=== PATIENT | female | born 1995 | race Caucasian/White ===

== ENCOUNTER 2018-05-30 06:06 | Inpatient (IN) | payer MEDICAID ==
[2018-05-30 06:13] VITALS: BP 149/67
[2018-05-30] MEDS ORDERED: FAMOTIDINE(*) 20MG/50ML PREMIX 50 ML IVPB PRN (06:30)
[2018-05-30] MEDS ORDERED: OXYTOCIN 30 UNIT/D5LR 500 ML 500 ML IV PRN ×2 (06:30→08:41)
[2018-05-30] MEDS ORDERED: cefOXitin/DEX(*) 2GM/50ML PREM 50 ML IVPB PRN (06:30)
[2018-05-30] MEDS ORDERED: fentaNYL CITR 100 MCG/2 ML AMP IVP PRN (06:30)
[2018-05-30] MEDS ORDERED: LR(*) 1000 ML BAG 1,000 ML IV SCH (06:30)
[2018-05-30] MEDS ORDERED: METOCLOPRAMIDE 10 MG/2 ML SDV IVP PRN (06:30)
[2018-05-30] MEDS ORDERED: LIDOCAINE 1% LOCAL 300 MG/30ML INJ PRN (06:30)
[2018-05-30] MEDS ORDERED: BUPIVACAINE 0.5% INJ 30ML VIAL EPI PRN (06:45)
[2018-05-30] MEDS ORDERED: BUPIVACAINE 0.25% MPF INJ EPI PRN (06:45)
[2018-05-30] MEDS ORDERED: FENTANYL/ROPIVACAINE 100 ML BAG EPI PRN (06:45)
[2018-05-30] MEDS ORDERED: fentaNYL CITR 100 MCG/2 ML AMP IT PRN (06:45)
[2018-05-30] MEDS ORDERED: LIDO/EPI 2% MPF 1:200,000 20ML EPI PRN (06:45)
[2018-05-30] MEDS ORDERED: LIDOCAINE/PF 2% 200MG/10ML AMP 200 MG/10 ML AMPUL EPI PRN (06:45)
[2018-05-30 07:06] LABS: PLATELET COUNT, AUTOMATED 231 K/uL (150-450)
[2018-05-30] MEDS ORDERED: ePHEDrine 25 MG/5 ML DISP.SYR IVP ONE (07:14)
--- NOTE | 2018-05-30 08:35 | History & Physical ---
History of Present Illness Age of Patient: 22 : 2 Para or TPAL: 0 EDC per LMP: May 26, 2018 Estimated Gestational Age: 40.4 Chief Complaint Labor History of Present Illness Presents in labor and SROM. uncomplicated and recieved her at 36 weeks transferred from another location to [place], [place]. She is Rh negative. Past Medical, Surgical, Family and Obstetric Histories reviewed. Please see ACOG chart. Review of Systems All Systems Reviewed/Normal: Yes, Except as Noted Exam General Exam Vital Signs Vital Signs Date Time Temp Pulse Resp B/P (MAP) Pulse Ox O2 Delivery O2 Flow Rate FiO2 05/30/18 06:13 99.0 93 18 149/67 (94) 98 Room Air General Apperance: Alert/Awake/No Acute Distress Neuro: No Gross deficits Eyes: Normal Extraocular Movement & Vison Cardiovascular: Regular Rate and Rhythm Respiratory: No Respiratory Distress Abdomen: Soft, Non-Tender, Non-Distended, Gravid - Non-Tender Integumentary: Skin Intact without Lesions or Rash Psychological: Alert & Oriented X3, Appropriate Mood & Affect Cervical Dialation: 4 Cervical Effacement (%): 90 Station: -2 Presentation: Vertex Fetus Heart Tone Variabilty: Moderate FHT Accelerations: 15X15 FHT Category: I Medical Decision Making Data Points Result Diagram: 05/30/18 0654 VTE Prophylasis: Adult Deep Vein Thrombosis/Pulmonary: No Pharmacological Contraindicati: Pt at Low Risk for VTE Mechanical Contraindications: Pt at Low Risk for VTE 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
--- NOTE | 2018-05-30 08:44 | Anesthesia OB Pre-Anes Eval ---
History of Present Illness Anesthesia Start Date: May 30, 2018 Anesthesia Start Time: 07:10 OB Anesthesia Diagnosis: spontaneous labor EDC: May 26, 2018 : 2 Para: 0 Pain Ratin Result Diagram: 05/30/18 0654 Past Medical History Medical History: other (HX of kidney infections/UTI's) Surgical History: no surgical history Attended Childbirth Classes?: No Hx Anesthesia Reactions: No Hx Family Anesthesia Reaction: No Home Meds Reported Medications Vit #76/Iron,Carb/FA (Pnv 29-1 Tablet) 1 Each Tablet, 1 TAB PO QDAY 05/30/18 Allergies: Coded Allergies: No Known Drug Allergies (Unverified , 05/30/18) Anesthesia OB ROS Neurological: No migraines/headaches, No seizures, No neuropathy, No other ENT: Denies Tooth caps, Denies Loose teeth, Denies Chipped teeth, Denies Dentures, Denies Bridges, Denies Retainers, Denies Veneers, Denies Implants, Denies Tongue ring, Denies Other Pulmonary: No asthma, No smoker (pks/day/yrs), No other (quit years ago) Airway Class: lll Cardiovascular ROS: No edema, No arrhythmia, No other GI ROS: clear liquids Last Solids Date: May 29, 2018 Last Solids Time: 20:00 ROS: No Herpes, No STD(s), No Liver Disease, No Renal Disease, No Other Endocrine ROS: No diabetes, No gestational diabetes, No thyroid disorder, No other Musculoskeletal ROS: No low back pain, No low back injury, No scoliosis, No other ASA Classification: 2 Assessment and Plan Anesthesia Plan: CSE Anesthesia Stop Day: May 30, 2018 Anesthesia Stop Time: 19:45 Epidural Catheter Removal: Removed Catheter Intact, Yes, Removed by: (Radha JEAN) Removal Date: May 30, 2018 Removal Time: 22:30 RYAN CARNEY CRNA May 30, 2018 08:44
[2018-05-30] MEDS ORDERED: TERBUTALINE SULF 1 MG/ML VIAL IVP PRN (08:45)
--- NOTE | 2018-05-30 08:49 | Procedure Note ---
Anesthetic Placement Note Anesthesia Plan: CSE Permit for Anesthesia Signed: Yes Anesthesia Technique: Patient Sitting Anesthesia Prep: Chlorhexidine Interspace: L 3-4 Local Anesthetic: 1% Lidocaine, 25 Gauge Needle Amount Local - cc's: 3 Anesthesia Needle: 17g Touhy/Schliff Anesthesia Attempts: 2 Loss of Resistance: Normal Saline Depth of JUNIE (cm): 6 Epidural Needle Placement: No CSF, No Blood, No Parasthesia Intrathecal Needle: 27 Gauge Pencan Cerebral Spinal Fluid: Yes, Clear Catheter Insertion (cm): 11 Catheter Type: Puri - Spring Wound Epidural Dressing: Tegaderm, Tape Anesthesia Tray: Lot Number ([id number]), Expiration Date (11/05/2019) Anesthesia Medications: Intrathecal Dose: mcg Fentanyl (50), Time (814) Epidural Test Dose: 1.5 Lido/Epi (1:200,000), Dose - mL (4), Time (08), Negative Epidural Loading Dose: 0.2% Ropivicaine, With Fentanyl 2mcg/ml, Dose - ml (3), Time (08) Epidural Infusion: 0.2% Ropivicaine, With Fentanyl 2mcg/ml, Start Time: (827) Epidural Pump Setting: Bolus Dose - mL (5), Lockout - Minutes (20), Maintenance Rate - mL/hr (8), Maximum per Hour - mL (10) Complications: None Comment: Difficult to place. attempted x2 JUNIE off to the left of center. RYAN CARNEY CRNA May 30, 2018 08:49
[2018-05-30] MEDS ORDERED: CALCIUM CARBONATE 500 MG CHEW PO PRN (13:50)
--- NOTE | 2018-05-30 17:54 | Labor Progress Note ---
Labor Subjective Progress Notes Subjective Complete and pushing. Strong pushes and baby at +2 station in ARTURO position. Deep variables with pushes but return to baseline with good variability and accels. Vaginal Discharge/Fluid: Bloody Show Labor Objective Vital Signs Vital Signs Date Time Temp Pulse Resp B/P (MAP) Pulse Ox O2 Delivery O2 Flow Rate FiO2 05/30/18 06:13 99.0 93 18 149/67 (94) 98 Room Air Fetus Heart Tone Variabilty: Moderate FHT Accelerations: 15X15 FHT Category: I Other Result Diagram: 05/30/18 0654 Assessment and Plan Problems: (1) 40 weeks gestation of Assessment & Plan: If moves into category 2 strip or maternal exhaustion, will consider FAVD. Reviewed this with pt and mother. R/B/A reviewed. For now, continue pushing. RAYSA BAUTISTA MD May 30, 2018 17:54
[2018-05-30] MEDS ORDERED: METHYLERGONOVINE MAL 0.2MG/ML ONE (18:18)
[2018-05-30] MEDS ORDERED: MEASLES,MUMP,RUBELLA VAC 0.5ML SUBQ ONE (19:10)
[2018-05-30] MEDS ORDERED: GLYCERIN/WITCH HAZEL LEAF 1 PK TP PRN (19:10)
[2018-05-30] MEDS ORDERED: LANOLIN OINT 7 GM TUBE TP PRN (19:10)
[2018-05-30] MEDS ORDERED: ACETAMINOPHEN 325 MG TAB PO PRN (19:10)
[2018-05-30] MEDS ORDERED: INFLUENZA VIRUS VAC 0.5ML SYR IM ONLY ONE (19:10)
[2018-05-30] MEDS ORDERED: BENZOCAINE 20% 60 ML BTL TP PRN (19:10)
[2018-05-30] MEDS ORDERED: HYDROCORTISONE 2.5% CR 30GM TB PR PRN (19:10)
[2018-05-30] MEDS ORDERED: MAGNESIUM HYDROXIDE* 30ML UDCP PO PRN (19:10)
[2018-05-30] MEDS ORDERED: DIPHTH/TETANUS/ACEL. PERTUSSIS IM ONLY ONE (19:10)
--- NOTE | 2018-05-30 19:19 | OB Delivery Note ---
Delivery Note Vaginal Delivery Type: Forceps (Closed Simpsons, +2/3, ARTURO position), Low Delivery Date: May 30, 2018 Delivery Time: 18:28 Estimated Gestational Age(wks): 40.4 Indication (if vag op): Maternal exhaustion; Severe variable decelerations Delivery Anesthesia: Epidural Sex: Female Rose Apgars: 1 Minute (8), 5 Minute (8) Repair Needed: Laceration, 3rd Degree Estimated Blood Loss: 400 Delivery Complications: Shoulder Dystocia (mild with suprapubic pressure), Laceration Notes: Presented pushing in ARTURO position and strong pushes. Severe variable decelerations noted but good return to baseline category 1 between with accelerations and variability. Slow increase in babies baseline FHTs to 155 and maternal exhaustion after 1.5 hours pushing with little progress. Consented for Forceps delivery. R/B/A reviewed in detail including risk of injury to baby and increase in perineal trauma. She desired and consent obtained. Hunt indwelling, ARTURO position, +2/3 station. Closed Simpsons easily applied and over next contraction, pushing with assistance. Slow progress to and coaching required. Delivery over 3rd degree laceration with bilateral sulcus tears. Head delivered and turtle sign noted. Bed dropped and suprapubic p ressure applied with maternal push. Assistance by deflecting baby's head toward the rectum and a hand over the anterior shoulder deflecting it inward resulted in release of the shoulder. Nuchal cord x 1 and body cord noted. Terminal meconium noted. Placenta delivered spontaneous and intact. Repair with 2-0 Chromic along the sulcus tears followed by 2-0 Vicryl to repair the anal sphincter. Good hemostasis and reapproximation of all skin edges. Uterus massaged firm. No further complications. Screw Eye Assembler in Attendence: No Copies to: RAYSA BAUTISTA MD ; RAYSA BAUTISTA MD May 30, 2018 19:19
[2018-05-30] MEDS ORDERED: PREN1TAB50 PO (19:54)
[2018-05-30] MEDS ORDERED: LIDOCAINE 1% LOCAL 300 MG/30ML 30 ML ONE (21:30)
[2018-05-30] MEDS: DOCUSATE CALCIUM 240 MG CAP PO SCH (22:07)
[2018-05-30] MEDS: IBUPROFEN 800 MG TAB PO SCH (22:07)
[2018-05-31] VITALS: BP 113/51
[2018-05-31] MEDS: APAP/HYDROCODONE 325/7.5 TAB PO PRN ×5 (00:11→20:45)
[2018-05-31 03:30] VITALS: BP 114/55
[2018-05-31] MEDS: IBUPROFEN 800 MG TAB PO SCH ×3 (05:14→20:45)
[2018-05-31 08:10] VITALS: BP 109/51
--- NOTE | 2018-05-31 12:33 | OB/GYN Progress Note ---
OB Subjective Progress Notes Subjective Doing well. Pain well controlled with Lortab. Hunt removed this AM and has not been up to void yet. GI: NEG Nausea : Voiding Well Pain: Mild OB Objective Physical Exam Vital Signs Date Time Temp Pulse Resp B/P (MAP) Pulse Ox O2 Delivery O2 Flow Rate FiO2 05/31/18 03:30 97.8 84 18 114/55 (74) 05/30/18 06:13 98 Room Air Intake and Output 05/31/18 07:00 Intake Total 2130 ml Output Total 1300 ml Balance 830 ml Intake IV Total 2130 ml Output Urine Total 900 ml Estimated Blood Loss 400 ml General Appearance: Alert/Awake/No Acute Distress Neurological: No Gross deficits Eyes: Normal Extraocular Movement & Vison Cardiovascular: Normal Rhythm & Peripheral Pulses Respiratory: No Respiratory Distress Abdomen: Soft, Non-Tender, Non-Distended, Fundus Firm, Non-Tender Integumentary: Skin Intact without Lesions or Rash Psychological: Alert & Oriented X3, Appropriate Mood & Affect Result Diagram: 05/31/18 0632 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 Continue comfort measures. Return to office in 6 weeks. RAYSA BAUTISTA MD May 31, 2018 12:33
[2018-05-31 19:30] VITALS: BP 114/60
[2018-05-31] MEDS: DOCUSATE CALCIUM 240 MG CAP PO SCH (20:45)
[2018-06-01] MEDS: APAP/HYDROCODONE 325/7.5 TAB PO PRN ×3 (02:28→12:18)
[2018-06-01] MEDS: IBUPROFEN 800 MG TAB PO SCH ×2 (05:07→12:54)
--- NOTE | 2018-06-01 08:24 | OB/GYN Progress Note ---
OB Subjective Progress Notes Subjective Feeling well. Pain in bottom improving. Bleeding light. GI: NEG Nausea : Voiding Well Pain: Mild OB Objective Physical Exam Vital Signs Date Time Temp Pulse Resp B/P (MAP) Pulse Ox O2 Delivery O2 Flow Rate FiO2 05/31/18 19:30 97.8 95 16 114/60 (78) 97 Room Air Intake and Output 06/01/18 07:00 Intake Total 480 ml Output Total 1000 ml Balance -520 ml Intake Oral 480 ml Output Urine Total 1000 ml # Voids 3 General Appearance: Alert/Awake/No Acute Distress Neurological: No Gross deficits Eyes: Normal Extraocular Movement & Vison Cardiovascular: Normal Rhythm & Peripheral Pulses Respiratory: No Respiratory Distress Abdomen: Soft, Non-Tender, Non-Distended, Fundus Firm, Non-Tender Integumentary: Skin Intact without Lesions or Rash Psychological: Alert & Oriented X3, Appropriate Mood & Affect Result Diagram: 05/31/18 0632 Assessment and Plan Problems: (1) 40 weeks gestation of (2) care and examination immediately after delivery Assessment & Plan: Home today. Precautions reviewed. F/U at 6 weeks. RAYSA BAUTISTA MD Jun 01, 2018 08:24
[2018-06-01] MEDS ORDERED: IBUP800T37 PO (08:25)
[2018-06-01] MEDS ORDERED: Acetaminophen/Hydrocodone PO (08:25)
--- NOTE | 2018-06-01 08:27 | OB/GYN Discharge Summary ---
Discharge Summary Reason for Hosp/Final Diag: (1) 40 weeks gestation of Hospital Course & Plan: s/p FAVD with 3rd degree laceration repaired. (2) care and examination immediately after delivery Hospital Course & Plan: Home today. Precautions reviewed. F/U at 6 weeks. 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 Blanco [phone] Follow up in: 6 wks PP or PO Discharge Diet: As Tolerates Discharge Activity: As Tolerates, No Heavy Lifting x 6 wks, No Heavy Lifting > 10lb, Pelvic Rest Copies to: RAYSA BLANCO MD ; RAYSA BLANCO MD Jun 01, 2018 08:27
[2018-06-01 08:30] VITALS: BP 126/73
[2018-06-01] MEDS: DOCUSATE CALCIUM 240 MG CAP PO SCH (10:15)
== END 2018-06-01 15:25 | disposition home or self-care (01) | DRG 768 ==
LOC: OB 06:06 → PED 05-31 19:46
PROVIDERS: ADMIT Obstetrics & Gynecology; ATTEND Obstetrics & Gynecology
PROC: 10E0XZZ Delivery of Products of Conception, External Approach (ICD-10-PCS; principal; 2018-05-30)
PROC: 0DQR0ZZ Repair Anal Sphincter, Open Approach (ICD-10-PCS; 2018-05-30)
PROC: 3E0334Z Introduction of Serum, Toxoid and Vaccine into Peripheral Vein, Percutaneous Approach (ICD-10-PCS; 2018-06-01)
DX: O69.81X0 Labor and delivery complicated by cord around neck, without compression, not applicable or unspecified (principal); Z37.0 Single live birth; O70.20 Third degree perineal laceration during delivery, unspecified; O36.0130 Maternal care for anti-D [Rh] antibodies, third trimester, not applicable or unspecified; O66.0 Obstructed labor due to shoulder dystocia; O77.0 Labor and delivery complicated by meconium in amniotic fluid; O75.81 Maternal exhaustion complicating labor and delivery; O76 Abnormality in fetal heart rate and rhythm complicating labor and delivery; Z3A.40 40 weeks gestation of pregnancy
CPT/HCPCS: 36415; 85025; 85027; 85461; 86850; 86900; 86901; J2001; J2590; J2791; J3010; J7120; S0020